=== PATIENT | female | born 1995 | race Caucasian/White ===

== ENCOUNTER 2018-04-07 18:28 | Emergency (ER) | payer OTHER ==
[2018-04-07] MEDS: METOCLOPRAMIDE 10 MG TAB PO (20:23)
[2018-04-07] MEDS: ONDANSETRON 4MG/2ML VIAL (J2405) IV (21:04)
[2018-04-07] MEDS: NS 1,000 ML IV (21:04)
[2018-04-07 21:11] LABS: BASO % 0.3 % (0.0-1.0); EOS % 0.1 % (0.0-3.0); HEMATOCRIT 41.6 % (36.0-47.0); HEMOGLOBIN 14.3 g/dl (12.0-15.5); IMMATURE GRANULOCYTE % 0.3 % (0-3.0); LYMPH # 1.3 10^3/uL (1.5-6.5); LYMPH % 13.5 % (24.0-44.0); MEAN CORPUSCULAR HEMOGLOBIN 28.3 pg (27.0-33.0); MEAN CORPUSCULAR HGB CONC 34.4 g/dl (32.0-36.5); MEAN CORPUSCULAR VOLUME 82.2 fl (80.0-96.0); MONO # 0.7 10^3/uL (0.0-0.8); MONO % 6.5 % (0.0-5.0); NEUTROPHILS # 7.9 10^3/uL (1.8-7.7); NEUTROPHILS % 79.3 % (36.0-66.0); PLATELET COUNT, AUTOMATED 250 10^3/uL (150-450); RED BLOOD COUNT 5.06 10^6/uL (4.00-5.40); RED CELL DISTRIBUTION WIDTH 13.8 % (11.5-14.5); WHITE BLOOD COUNT 9.9 10^3/uL (4.0-10.0)
[2018-04-07 21:40] LABS: ANION GAP 13 MEQ/L (8-16); BLOOD UREA NITROGEN 10 MG/DL (7-18); CALCIUM LEVEL 9.6 MG/DL (8.5-10.1); CARBON DIOXIDE LEVEL 22 MEQ/L (21-32); CHLORIDE LEVEL 103 MEQ/L (98-107); CREATININE FOR GFR 0.59 MG/DL (0.55-1.30); GLOMERULAR FILTRATION RATE > 60.0 (>60); GLUCOSE, FASTING 79 MG/DL (70-100); POTASSIUM SERUM 3.9 MEQ/L (3.5-5.1); SODIUM LEVEL 138 MEQ/L (136-145)
== END 2018-04-07 23:24 | disposition home or self-care (01) ==
LOC: M ED 18:28
DX: R11.2 Nausea with vomiting, unspecified (principal); Z88.0 Allergy status to penicillin
CPT/HCPCS: J2405

== ENCOUNTER 2018-04-27 11:06 | Emergency (ER) | payer OTHER ==
[2018-04-27] MEDS: NS 1,000 ML IV (11:48)
[2018-04-27] MEDS: METOCLOPRAMIDE INJ 10MG/2ML VIAL (J2765) IV (11:48)
[2018-04-27 12:13] LABS: HEMATOCRIT 37.4 % (36.0-47.0); HEMOGLOBIN 13.2 g/dl (12.0-15.5); MEAN CORPUSCULAR HEMOGLOBIN 28.2 pg (27.0-33.0); MEAN CORPUSCULAR HGB CONC 35.3 g/dl (32.0-36.5); MEAN CORPUSCULAR VOLUME 79.9 fl (80.0-96.0); PLATELET COUNT, AUTOMATED 204 10^3/uL (150-450); RED BLOOD COUNT 4.68 10^6/uL (4.00-5.40); RED CELL DISTRIBUTION WIDTH 13.5 % (11.5-14.5); WHITE BLOOD COUNT 8.4 10^3/uL (4.0-10.0)
[2018-04-27 12:40] LABS: ANION GAP 14 MEQ/L (8-16); BLOOD UREA NITROGEN 9 MG/DL (7-18); CALCIUM LEVEL 9.4 MG/DL (8.5-10.1); CARBON DIOXIDE LEVEL 19 MEQ/L (21-32); CHLORIDE LEVEL 106 MEQ/L (98-107); GLOMERULAR FILTRATION RATE > 60.0 (>60); GLUCOSE, FASTING 84 MG/DL (70-100); POTASSIUM SERUM 4.1 MEQ/L (3.5-5.1); SODIUM LEVEL 139 MEQ/L (136-145)
[2018-04-27 13:00] LABS: KETONE, URINE AUTO RFX 2+ mg/dL (NEGATIVE); LEUKOCYTE ESTERASE UR AUTO RFX NEGATIVE (NEGATIVE); MUCUS, URINE RFX MODERATE (NEGATIVE); NITRITE, URINE AUTO RFX NEGATIVE (NEGATIVE); RBC, URINE AUTO RFX 1 /HPF (0-3); SPECIFIC GRAVITY UR AUTO RFX 1.032 (1.002-1.035); SQUAM EPITHELIAL CELL UR AURFX 2 /HPF (0-6); WBC, URINE AUTO RFX 1 /HPF (0-3)
== END 2018-04-27 13:26 | disposition home or self-care (01) ==
LOC: M ED 11:06
DX: O21.9 Vomiting of pregnancy, unspecified (principal); Z3A.11 11 weeks gestation of pregnancy; Z88.0 Allergy status to penicillin; Z88.8 Allergy status to other drugs, medicaments and biological substances
CPT/HCPCS: J2765

== ENCOUNTER → 2018-04-28 | Outpatient (CLI) | payer OTHER | LOC: M LAB 12:30 | DX: Z01.83 Encounter for blood typing (principal) | CPT/HCPCS: 36415 ==

== ENCOUNTER → 2019-03-17 | Outpatient (REF) | payer OTHER ==
[~2019-03-17] MED LIST: ZOFR4TAB14 PO
== END ==
LOC: M SFHCLERA 19:42
PROVIDERS: ATTEND Nurse Practitioner Family
DX: J02.9 Acute pharyngitis, unspecified (principal)

== ENCOUNTER 2021-08-16 11:28 | Outpatient (CLI) | payer OTHER, MEDICAID ==
[~2021-08-16] VITALS: Ht 165.1 cm; Wt 115.3 kg
[2021-08-16 11:43] VITALS: BP 131/74
[2021-08-16] MEDS ORDERED: ZOLO50TA PO (11:50)
[2021-08-16] MEDS ORDERED: HOME MED LIST COMPLETE! XX SCH (11:55)
[2021-08-16] MEDS ORDERED: FLUCONAZOLE 50MG TABLET PO ONE (12:35)
[2021-08-16 12:56] LABS: APPEARANCE, URINE HAZY (CLEAR); BACTERIA, URINE AUTO 1+ (NEGATIVE); BILIRUBIN, URINE AUTO NEGATIVE (NEGATIVE); BLOOD, URINE BLOOD NEGATIVE (NEGATIVE); COLOR, URINE YELLOW (YELLOW); GLUCOSE, URINE (UA) AUTO NEGATIVE (NEGATIVE); KETONE, URINE AUTO NEGATIVE (NEGATIVE); LEUKOCYTE ESTERASE, URINE AUTO 1+ (NEGATIVE); MUCUS, URINE SMALL (NEGATIVE); NITRITE, URINE AUTO NEGATIVE (NEGATIVE); PROTEIN, URINE AUTO NEGATIVE (NEGATIVE); RBC, URINE AUTO 1 /HPF (0-3); SPECIFIC GRAVITY URINE AUTO 1.015 (1.002-1.035); SQUAMOUS EPITHELIAL CELL UR AU 7 /HPF (0-6); UROBILINOGEN, URINE AUTO 0.2 mg/dL (0.0-2.0); WBC, URINE AUTO 2 /HPF (0-3)
== END 2021-08-16 12:35 | disposition home or self-care (01) ==
LOC: M LDO 11:28
PROVIDERS: ATTEND Advanced Practice Midwife
DX: O23.43 Unspecified infection of urinary tract in pregnancy, third trimester (principal); Z3A.36 36 weeks gestation of pregnancy; Z88.1 Allergy status to other antibiotic agents; Z88.8 Allergy status to other drugs, medicaments and biological substances
CPT/HCPCS: 59025; 81001; 87081; 87086; 87186; G0378; G0463

== ENCOUNTER 2021-08-24 13:02 | Outpatient (CLI) | payer OTHER, MEDICAID ==
[~2021-08-24] VITALS: Ht 165.1 cm; Wt 116.0 kg
[2021-08-24 13:02] VITALS: BP 150/104
[~2021-08-24 13:02] MED LIST changes: +ZOLO50TA PO
[2021-08-24 13:19] VITALS: BP 120/77
[2021-08-24] MEDS ORDERED: OMEP10CASR PO (13:30)
[2021-08-24] MEDS ORDERED: REGL5TAB2 PO (13:31)
[2021-08-24] MEDS ORDERED: TUMS500C PO (13:31)
[2021-08-24] MEDS ORDERED: HOME MED LIST COMPLETE! XX SCH (13:35)
[2021-08-24 14:33] VITALS: BP 122/57
== END 2021-08-24 14:48 | disposition home or self-care (01) ==
LOC: M LDO 13:02
PROVIDERS: ATTEND Obstetrics & Gynecology
DX: O98.513 Other viral diseases complicating pregnancy, third trimester (principal); B34.1 Enterovirus infection, unspecified; Z3A.37 37 weeks gestation of pregnancy; O99.343 Other mental disorders complicating pregnancy, third trimester; F32.A Depression, unspecified; O99.820 Streptococcus B carrier state complicating pregnancy; O99.810 Abnormal glucose complicating pregnancy; O99.213 Obesity complicating pregnancy, third trimester; E66.9 Obesity, unspecified; Z68.39 Body mass index [BMI] 39.0-39.9, adult
CPT/HCPCS: 59025; 87798; G0378; G0463

== ENCOUNTER 2021-09-02 10:22 | Inpatient (IN) | payer OTHER ==
[~2021-09-02] VITALS: Ht 165.1 cm; Wt 116.9 kg
[2021-09-02] VITALS (12 sets, daily range): BP systolic 118–143; BP diastolic 55–91
[~2021-09-02 10:22] MED LIST changes: +OMEP10CASR PO; +REGL5TAB2 PO; +TUMS500C PO
[2021-09-02] MEDS ORDERED: LIDOCAINE 1% MDV 20ML VIAL INFIL PRN (10:30)
[2021-09-02] MEDS ORDERED: OXYTOCIN DRIP 30 UNITS in IV 1 EA IV PRN (10:30)
[2021-09-02] MEDS ORDERED: TRANEXAMIC ACID INJection 1,000 MG in NS 100 ML IV PRN (10:30)
[2021-09-02] MEDS ORDERED: CARBOPROST TROMETHAMINE 250 MCG/ML AMP IM PRN (10:30)
[2021-09-02] MEDS ORDERED: METHYLERGONOVINE MALEATE 0.2 MG/ML VIAL (J2210) IM PRN (10:30)
[2021-09-02] MEDS ORDERED: PENICILLIN G POTASSIUM IV 5 MU in D5W MINI-BAG PLUS 100 ML IV STA (12:08)
[2021-09-02 12:19] LABS: HEMATOCRIT 32.6 % (36.0-47.0); MEAN CORPUSCULAR HEMOGLOBIN 21.4 pg (27.0-33.0); MEAN CORPUSCULAR HGB CONC 30.7 g/dl (32.0-36.5); MEAN CORPUSCULAR VOLUME 69.8 fl (80.0-96.0); PLATELET COUNT, AUTOMATED 248 10^3/uL (150-450); RED BLOOD COUNT 4.67 10^6/uL (4.00-5.40); WHITE BLOOD COUNT 8.8 10^3/uL (4.0-10.0)
[2021-09-02] MEDS: LR 1,000 ML IV SCH ×2 (12:30→19:26)
[2021-09-02] MEDS ORDERED: HOME MED LIST COMPLETE! XX SCH (12:45)
[2021-09-02] MEDS ORDERED: miSOPROStol 50MCG 1/2 TABLET PO SCH (13:00)
[2021-09-02] MEDS ORDERED: ONDANSETRON 4MG/2ML VIAL As Ordered ONE (13:18)
[2021-09-02] MEDS: ONDANSETRON 4MG/2ML VIAL IV PRN ×2 (13:20→18:19)
[2021-09-02] MEDS: miSOPROStol 50MCG 1/2 TABLET SL SCH ×3 (13:55→21:45)
[2021-09-02] MEDS ORDERED: FAMOTIDINE INJ 20MG/2ML VIAL (S0028 PER 1) IVP ONE (15:00)
[2021-09-03] VITALS (24 sets, daily range): BP systolic 122–187; BP diastolic 53–123
[2021-09-03] MEDS ORDERED: FAMOTIDINE INJ 20MG/2ML VIAL (S0028 PER 1) IVP SCH (01:00)
[2021-09-03] MEDS ORDERED: FAMOTIDINE IV BAG 20 MG in IV 1 EA IV SCH (01:15)
[2021-09-03] MEDS ORDERED: PENICILLIN G POTASSIUM IV 2.5 MU in IV 1 EA IV SCH (03:00)
[2021-09-03] MEDS ORDERED: OXYTOCIN 30 UNITS IN 0.9% NaCl 500ML IV BAG (J2590) As Ordered ONE (03:14)
[2021-09-03] MEDS ORDERED: FENTANYL 2MCG/ML ROPIVACAINE 0.2% IN 0.9% NACL 100ML IVBAG As Ordered ONE (03:32)
[2021-09-03] MEDS ORDERED: LACTATED RINGER'S 1000 ML IV PRN (03:45)
[2021-09-03] MEDS ORDERED: FENTANYL/ROPIVACAINE/NACL BAG 100 ML EPIDURAL SCH (03:45)
[2021-09-03] MEDS ORDERED: REFRIGERATOR IV KEYS XX PRN (03:45)
[2021-09-03] MEDS ORDERED: ePHEDrine SULFATE 25 MG/5 ML(5MG/ML) SYRINGE IV PRN (03:45)
[2021-09-03] MEDS ORDERED: NALOXONE INJ 0.4MG/1ML VIAL (J2310 PER 1MG) IV PRN (03:45)
[2021-09-03] MEDS ORDERED: diphenhydrAMINE 50MG/ML VIAL (J1200) IV PRN (03:45)
[2021-09-03] MEDS ORDERED: EPIDURAL COMMENT XX SCH (03:45)
[2021-09-03] MEDS ORDERED: ONDANSETRON 4MG/2ML VIAL IV PRN (03:45)
[2021-09-03] MEDS ORDERED: EPIDURAL/PCA KEYS XX PRN (03:45)
[2021-09-03] MEDS: LR 1,000 ML IV SCH (04:40)
[2021-09-03] MEDS ORDERED: CALCIUM CARBONATE 500 MG CHEW U/D PO PRN (06:20)
[2021-09-03] MEDS ORDERED: DIBUCAINE 1% OINTMENT 30GM TOP PRN (06:25)
[2021-09-03] MEDS ORDERED: IBUPROFEN 600MG TAB PO PRN (06:25)
[2021-09-03] MEDS ORDERED: METHYLERGONOVINE MALEATE 0.2 MG TAB PO PRN (06:25)
[2021-09-03] MEDS ORDERED: ACETAMINOPHEN 500 MG TAB PO PRN (06:25)
[2021-09-03] MEDS ORDERED: RHOGAM 300 MCG (1500 IU) INJ (J2790) IM SCH (06:25)
[2021-09-03] MEDS ORDERED: ACETAMINOPHEN TAB 650MG DOSE (2X325MG) PO PRN (06:25)
[2021-09-03] MEDS ORDERED: DOCUSATE SODIUM 100MG CAPSULE PO PRN (06:25)
[2021-09-03] MEDS ORDERED: MEASLES,MUMPS,RUBELLA VACCINE INJ (MMR-II) (90707) SC SCH (06:25)
[2021-09-03] MEDS: OMEPRAZOLE 20MG CAP PO SCH (08:49)
[2021-09-03] MEDS: PRENATAL VITAMINS CHEWABLE TABLET PO SCH (08:49)
[2021-09-03] MEDS: SERTRALINE HCL 50 MG TAB PO SCH (08:50)
[2021-09-03] MEDS: IBUPROFEN 800 MG TAB PO PRN ×2 (08:51→23:07)
[2021-09-03] MEDS ORDERED: SLF 3 ML SYR IV PRN (10:40)
[2021-09-03] MEDS: SLF 3 ML SYR IV SCH ×2 (14:00→21:06)
[2021-09-03] MEDS: FAMOTIDINE 20 MG TAB PO SCH ×2 (19:10→21:06)
[2021-09-04 06:00] VITALS: BP 117/62
[2021-09-04] MEDS: SLF 3 ML SYR IV SCH ×2 (06:00→14:43)
[2021-09-04] MEDS ORDERED: ACET1TAB55 PO (07:25)
[2021-09-04] MEDS ORDERED: IBUP-1022 PO (07:25)
[2021-09-04] MEDS: PRENATAL VITAMINS CHEWABLE TABLET PO SCH (09:28)
[2021-09-04] MEDS: FAMOTIDINE 20 MG TAB PO SCH (09:28)
[2021-09-04] MEDS: SERTRALINE HCL 50 MG TAB PO SCH (09:28)
[2021-09-04] MEDS: OMEPRAZOLE 20MG CAP PO SCH (09:28)
[2021-09-04] MEDS: IBUPROFEN 800 MG TAB PO PRN (13:14)
== END 2021-09-04 15:30 | disposition home or self-care (01) | DRG 805 ==
LOC: M LDI 10:22 → M OBS 09-03 10:08
PROVIDERS: ADMIT Obstetrics & Gynecology; ATTEND Obstetrics & Gynecology
PROC: 3E0P7GC Introduction of Other Therapeutic Substance into Female Reproductive, Via Natural or Artificial Opening (ICD-10-PCS; 2021-09-02)
PROC: 10E0XZZ Delivery of Products of Conception, External Approach (ICD-10-PCS; principal; 2021-09-03)
PROC: 0HQ9XZZ Repair Perineum Skin, External Approach (ICD-10-PCS; 2021-09-03)
DX: O69.89X0 Labor and delivery complicated by other cord complications, not applicable or unspecified (principal); Z37.0 Single live birth; U07.1 COVID-19; Z68.41 Body mass index [BMI] 40.0-44.9, adult; O98.52 Other viral diseases complicating childbirth; Z3A.39 39 weeks gestation of pregnancy; O99.824 Streptococcus B carrier state complicating childbirth; F32.A Depression, unspecified; O99.344 Other mental disorders complicating childbirth; O99.214 Obesity complicating childbirth; E66.9 Obesity, unspecified; O62.2 Other uterine inertia; O70.0 First degree perineal laceration during delivery